=== PATIENT | male | born 1980 | race Hispanic/Latino ===

== ENCOUNTER 2023-01-09 21:26 | Inpatient (IN) | payer SELFPAY ==
[~2023-01-09 21:26] MED LIST: Iopamidol-370 76% 500 ML MDV (1 ML CHARGE) ONE
[2023-01-09] MEDS ORDERED: LORazepam 2 MG/ML SYR.(CARPUJECT) ONE ×2 (21:50→22:27)
[2023-01-09 22:09] LABS: #Basophils 0.1 thou/uL (0.0-0.2); #Monocytes 0.8 thou/uL (0.11-0.59); #Neutrophils 3.3 thou/uL (1.40-6.50); %Basophils 1.5 % (0.0-1.0); %Eosinophils 0.3 % (0.0-10.0); %Lymphocytes 29.8 % (21.0-51.0); %Monocytes 13.5 % (0.0-10.0); %Neutrophils 54.4 % (42.0-75.0); Hematocrit 45.1 % (42.0-52.0); Hemoglobin 15.9 g/dL (14.0-18.0); Mean Corpuscular HGB CONC 35.3 g/dL (32.0-36.0); Mean Corpuscular Hemoglobin 32.6 pg (27.0-31.0); Mean Corpuscular Volume 92.4 fl (78.0-98.0); Mean Platelet Volume 9.8 fL (7.4-10.4); Platelet Count 159 10x3/uL (130-400); Red Blood Cell (RBC) Count 4.88 mill/uL (4.70-6.10); White Blood Cell (WBC) Count 6.1 10x3/uL (4.8-10.8)
[2023-01-09] MEDS ORDERED: Vancomycin 500 MG VIAL (PEDI) ONE (22:11)
[2023-01-09] MEDS ORDERED: Vancomycin 1.5 GRAM/300 ML BAG 1.5 GM in Premix Bag 1 BAG IVPB SCH (22:15)
[2023-01-09 22:26] LABS: ALT (SGPT) 70 U/L (8-55); AST (SGOT) 107 U/L (5-34); Albumin 4.6 g/dL (3.5-5.0); Alkaline Phosphatase 80 U/L (40-110); Anion Gap 21 mmol/L (10-20); BUN (Urea Nitrogen) 8 mg/dL (8.9-20.6); Bilirubin, Total 0.6 mg/dL (0.2-1.2); CK (CPK) 424 U/L (30-200); Calc. Creatinine Clearance 0 mL/min (70-130); Carbon Dioxide 19 mmol/L (22-29); Chloride 106 mmol/L (98-107); Estimated GFR 109; Globulin 3.8 g/dL (2.4-3.5); Glucose 143 mg/dL (70-105); Potassium 3.5 mmol/L (3.5-5.1); Protein, Total 8.4 g/dL (6.0-8.3); Sodium 142 mmol/L (136-145)
[2023-01-09] MEDS ORDERED: Folic Acid 1 MG TAB ONE (22:27)
[2023-01-09 22:29] LABS: Troponin I Less than 0.010 ng/mL (< 0.028)
[2023-01-09] MEDS ORDERED: Thiamine HCl 200 MG/2 ML VIAL SLOW IVP SCH (22:30)
[2023-01-09 22:32] LABS: Acetaminophen Less than 10 mcg/mL (10.0-30.0); Lipase 178 U/L (8-78); Salicylate Less than 8.0 mg/dL (15.0-30.0)
[2023-01-09] MEDS ORDERED: Piperacillin/Tazobactam 4.5 GM VIAL ONE (22:32)
[2023-01-09] MEDS ORDERED: Multivitamin W/ Minerals 1 TAB PO SCH (22:45)
[2023-01-09 22:50] LABS: Alcohol 492.5 mg/dL (Less than 10)
[2023-01-09 23:56] LABS: Amphetamine Not Detected (NotDetected); Barbiturates Screen Not Detected (NotDetected); Benzodiazepine Screen Not Detected (NotDetected); Cocaine Metabolite Screen Detected (NotDetected); Methadone Not Detected (NotDetected); Methamphetamine Not Detected (NotDetected); Opiate Screen Not Detected (NotDetected); Oxycodone Screen Not Detected (NotDetected); Phencyclidine (PCP) Not Detected (NotDetected); THC/Cannabinoid Screen Detected (NotDetected); Tricyclic Screen Not Detected (NotDetected)
[2023-01-10] MEDS ORDERED: LORazepam 2 MG/ML SYR.(CARPUJECT) ONE (00:28)
[2023-01-10] MEDS ORDERED: Ondansetron ODT 4 MG TAB PO PRN (01:17)
[2023-01-10] MEDS ORDERED: Lorazepam 2 MG/ML VIAL IM PRN (01:17)
[2023-01-10 01:18] LABS: Lactic Acid 2.1 mmol/L (0.5-2.2)
[2023-01-10] MEDS ORDERED: Electrolyte Replacement Protocol 1 EACH FS SCH (01:30)
[2023-01-10] MEDS: Lactated Ringer's 1,000 ML IV SCH ×4 (02:00→20:32)
[2023-01-10] MEDS: Lorazepam 1 MG TAB PO PRN ×3 (02:47→15:43)
[2023-01-10] MEDS ORDERED: Morphine 2 MG/ML VIAL SLOW IVP PRN (03:51)
[2023-01-10] MEDS: Lorazepam 1 MG TAB PO SCH ×4 (06:28→23:04)
[2023-01-10 06:34] LABS: Hemoglobin A1c 5.6 % (4.0-6.0)
[2023-01-10 06:48] LABS: ALT (SGPT) 59 U/L (8-55); AST (SGOT) 75 U/L (5-34); Albumin 4.3 g/dL (3.5-5.0); Alkaline Phosphatase 78 U/L (40-110); Anion Gap 15 mmol/L (10-20); BUN (Urea Nitrogen) 6 mg/dL (8.9-20.6); Bilirubin, Direct 0.3 mg/dL (0.1-0.3); Bilirubin, Total 0.5 mg/dL (0.2-1.2); Calc. Creatinine Clearance 127 mL/min (70-130); Calcium 8.6 mg/dL (7.8-10.44); Carbon Dioxide 21 mmol/L (22-29); Chloride 105 mmol/L (98-107); Estimated GFR 114; Globulin 3.5 g/dL (2.4-3.5); Glucose 101 mg/dL (70-105); Potassium 3.4 mmol/L (3.5-5.1); Protein, Total 7.8 g/dL (6.0-8.3); Sodium 138 mmol/L (136-145)
[2023-01-10 06:52] LABS: Troponin I 0.013 ng/mL (< 0.028)
[2023-01-10 07:23] LABS: HBCM Index 0.11 S/CO (0-0.79); HBSAg Index 0.29 S/CO (0-0.99); HIV (1/2) Antibody/Antigen Non-Reactive (NonReactive); HIV 1/2 INDEX 0.21 S/CO (<1.00); Hep A IgM AB Non-Reactive S/CO (NonReactive); Hep A IgM S/CO 0.19 S/CO (0-0.79); Hep B Surf Ag Non-Reactive S/CO (NonReactive); Hep C IgG Ab Non-Reactive S/CO (NonReactive); Hep C Index 0.06 S/CO (0-0.79); Hepatitis B Core IgM Abs Non-Reactive S/CO (NonReactive)
[2023-01-10 08:03] LABS: #Basophils 0.1 thou/uL (0.0-0.2); #Monocytes 0.7 thou/uL (0.11-0.59); #Neutrophils 2.8 thou/uL (1.40-6.50); %Basophils 1.9 % (0.0-1.0); %Eosinophils 0.5 % (0.0-10.0); %Lymphocytes 16.5 % (21.0-51.0); %Neutrophils 64.9 % (42.0-75.0); Hematocrit 43.2 % (42.0-52.0); Hemoglobin 14.2 g/dL (14.0-18.0); Mean Corpuscular HGB CONC 32.9 g/dL (32.0-36.0); Mean Corpuscular Hemoglobin 32.1 pg (27.0-31.0); Mean Platelet Volume 9.4 fL (7.4-10.4); Platelet Count 122 10x3/uL (130-400); RBC Distribution Width 13.2 % (11.5-14.5); Red Blood Cell (RBC) Count 4.43 mill/uL (4.70-6.10); White Blood Cell (WBC) Count 4.3 10x3/uL (4.8-10.8)
[2023-01-10 08:08] LABS: Mean Corpuscular Volume 97.5 fl (78.0-98.0)
[2023-01-10] MEDS: Famotidine/PF 20 mg/2ml Vial SLOW IVP SCH ×2 (08:19→20:32)
[2023-01-10] MEDS: Multivit, Therapeutic 1 TAB PO SCH (08:19)
[2023-01-10] MEDS: Folic Acid 1 MG TAB PO SCH (08:19)
[2023-01-10] MEDS: Potassium Chloride 20 MEQ in Premix Bag 1 BAG IVPB SCH ×2 (08:20→11:06)
[2023-01-10] MEDS ORDERED: Potassium Chloride 20 MEQ TAB PO SCH (11:15)
[2023-01-10 11:44] LABS: Syphilis Antibody Nonreactive (Nonreactive); Syphilis Antibody Index 0.05 S/CO (<1.00 Non-Reactive)
[2023-01-10] MEDS: Dexmedetomidine 400 MCG, Admixture Fee 1 EACH in Sodium Chloride 0.9% 96 ML IVPB SCH (12:49)
[2023-01-10] MEDS: Thiamine HCl 200 MG/2 ML VIAL SLOW IVP SCH (23:04)
[2023-01-11] MEDS ORDERED: Lorazepam 1 MG TAB PO PRN (01:17)
[2023-01-11] MEDS: Lactated Ringer's 1,000 ML IV SCH ×5 (03:11→21:40)
[2023-01-11 04:04] LABS: #Eosinphils 0.1 thou/uL (0.0-0.7); #Monocytes 0.7 thou/uL (0.11-0.59); #Neutrophils 3.6 thou/uL (1.40-6.50); %Basophils 0.6 % (0.0-1.0); %Lymphocytes 11.8 % (21.0-51.0); %Monocytes 13.5 % (0.0-10.0); %Neutrophils 72.9 % (42.0-75.0); Hematocrit 37.6 % (42.0-52.0); Hemoglobin 12.9 g/dL (14.0-18.0); Mean Corpuscular HGB CONC 34.3 g/dL (32.0-36.0); Mean Platelet Volume 9.9 fL (7.4-10.4); Platelet Count 123 10x3/uL (130-400); RBC Distribution Width 12.3 % (11.5-14.5); Red Blood Cell (RBC) Count 4.03 mill/uL (4.70-6.10); White Blood Cell (WBC) Count 4.9 10x3/uL (4.8-10.8)
[2023-01-11 04:06] LABS: Mean Corpuscular Volume 93.3 fl (78.0-98.0)
[2023-01-11] MEDS: Dexmedetomidine 400 MCG, Admixture Fee 1 EACH in Sodium Chloride 0.9% 96 ML IVPB SCH (04:59)
[2023-01-11] MEDS: Lorazepam 1 MG TAB PO SCH ×3 (05:00→18:14)
[2023-01-11 06:37] LABS: ALT (SGPT) 42 U/L (8-55); AST (SGOT) 40 U/L (5-34); Albumin 3.9 g/dL (3.5-5.0); Alkaline Phosphatase 78 U/L (40-110); Anion Gap 11 mmol/L (10-20); BUN (Urea Nitrogen) 8 mg/dL (8.9-20.6); Calc. Creatinine Clearance 120 mL/min (70-130); Calcium 9.6 mg/dL (7.8-10.44); Carbon Dioxide 23 mmol/L (22-29); Chloride 100 mmol/L (98-107); Estimated GFR 112; Globulin 3.1 g/dL (2.4-3.5); Glucose 129 mg/dL (70-105); Potassium 3.8 mmol/L (3.5-5.1); Sodium 130 mmol/L (136-145)
[2023-01-11] MEDS: Multivit, Therapeutic 1 TAB PO SCH (08:11)
[2023-01-11] MEDS: Famotidine/PF 20 mg/2ml Vial SLOW IVP SCH ×2 (08:11→21:02)
[2023-01-11] MEDS: Folic Acid 1 MG TAB PO SCH (08:11)
[2023-01-11 14:40] LABS: Anion Gap 13 mmol/L (10-20); BUN (Urea Nitrogen) 6 mg/dL (8.9-20.6); Calc. Creatinine Clearance 123 mL/min (70-130); Calcium 9.5 mg/dL (7.8-10.44); Carbon Dioxide 25 mmol/L (22-29); Chloride 99 mmol/L (98-107); Estimated GFR 113; Glucose 102 mg/dL (70-105); Potassium 4.2 mmol/L (3.5-5.1); Sodium 133 mmol/L (136-145)
[2023-01-11] MEDS: Thiamine HCl 200 MG/2 ML VIAL SLOW IVP SCH (21:02)
[2023-01-12] MEDS: Lorazepam 0.5 MG TAB PO SCH ×4 (00:49→17:50)
[2023-01-12] MEDS ORDERED: Lorazepam 1 MG TAB PO PRN (01:17)
[2023-01-12] MEDS: Dexmedetomidine 400 MCG, Admixture Fee 1 EACH in Sodium Chloride 0.9% 96 ML IVPB SCH (04:29)
[2023-01-12] MEDS: Lactated Ringer's 1,000 ML IV SCH (04:32)
[2023-01-12 05:07] VITALS: BMI 29.6
[2023-01-12 06:11] LABS: #Eosinphils 0.1 thou/uL (0.0-0.7); #Monocytes 0.5 thou/uL (0.11-0.59); #Neutrophils 3.7 thou/uL (1.40-6.50); %Basophils 0.6 % (0.0-1.0); %Eosinophils 1.8 % (0.0-10.0); %Lymphocytes 13.2 % (21.0-51.0); %Monocytes 10.6 % (0.0-10.0); %Neutrophils 73.6 % (42.0-75.0); Hematocrit 38.7 % (42.0-52.0); Hemoglobin 13.6 g/dL (14.0-18.0); Mean Corpuscular HGB CONC 35.1 g/dL (32.0-36.0); Mean Corpuscular Volume 93.9 fl (78.0-98.0); Mean Platelet Volume 10.9 fL (7.4-10.4); RBC Distribution Width 12.2 % (11.5-14.5); Red Blood Cell (RBC) Count 4.12 mill/uL (4.70-6.10); White Blood Cell (WBC) Count 5.1 10x3/uL (4.8-10.8)
[2023-01-12 06:39] LABS: ALT (SGPT) 55 U/L (8-55); AST (SGOT) 65 U/L (5-34); Alkaline Phosphatase 82 U/L (40-110); Anion Gap 13 mmol/L (10-20); BUN (Urea Nitrogen) 6 mg/dL (8.9-20.6); Bilirubin, Total 1.1 mg/dL (0.2-1.2); Calc. Creatinine Clearance 139 mL/min (70-130); Calcium 9.4 mg/dL (7.8-10.44); Carbon Dioxide 26 mmol/L (22-29); Chloride 99 mmol/L (98-107); Estimated GFR 114; Globulin 3.3 g/dL (2.4-3.5); Glucose 121 mg/dL (70-105); Potassium 3.7 mmol/L (3.5-5.1); Protein, Total 7.3 g/dL (6.0-8.3); Sodium 134 mmol/L (136-145)
[2023-01-12 06:42] LABS: Platelet Count 116 10x3/uL (130-400)
[2023-01-12] MEDS: Famotidine/PF 20 mg/2ml Vial SLOW IVP SCH (08:09)
[2023-01-12] MEDS: Folic Acid 1 MG TAB PO SCH (08:21)
[2023-01-12] MEDS: Multivit, Therapeutic 1 TAB PO SCH (08:21)
[2023-01-12] MEDS: Famotidine 20 MG TAB PO SCH (20:37)
[2023-01-12] MEDS: Thiamine HCl 200 MG/2 ML VIAL SLOW IVP SCH (20:38)
[2023-01-13] MEDS: Lorazepam 0.5 MG TAB PO PRN ×3 (02:53→15:48)
[2023-01-13 07:37] LABS: #Eosinphils 0.1 thou/uL (0.0-0.7); #Monocytes 0.9 thou/uL (0.11-0.59); #Neutrophils 7.5 thou/uL (1.40-6.50); %Basophils 0.4 % (0.0-1.0); %Eosinophils 1.2 % (0.0-10.0); %Lymphocytes 10.3 % (21.0-51.0); %Monocytes 9.1 % (0.0-10.0); %Neutrophils 78.6 % (42.0-75.0); Hematocrit 42.8 % (42.0-52.0); Hemoglobin 14.6 g/dL (14.0-18.0); Mean Corpuscular HGB CONC 34.1 g/dL (32.0-36.0); Mean Corpuscular Volume 96.8 fl (78.0-98.0); Mean Platelet Volume 10.6 fL (7.4-10.4); Platelet Count 146 10x3/uL (130-400); RBC Distribution Width 12.5 % (11.5-14.5); Red Blood Cell (RBC) Count 4.42 mill/uL (4.70-6.10); White Blood Cell (WBC) Count 9.5 10x3/uL (4.8-10.8)
[2023-01-13 08:08] LABS: ALT (SGPT) 53 U/L (8-55); AST (SGOT) 40 U/L (5-34); Albumin 4.3 g/dL (3.5-5.0); Alkaline Phosphatase 81 U/L (40-110); Anion Gap 13 mmol/L (10-20); BUN (Urea Nitrogen) 10 mg/dL (8.9-20.6); Bilirubin, Total 0.8 mg/dL (0.2-1.2); Calc. Creatinine Clearance 119 mL/min (70-130); Calcium 9.4 mg/dL (7.8-10.44); Carbon Dioxide 25 mmol/L (22-29); Chloride 100 mmol/L (98-107); Estimated GFR 109; Globulin 3.3 g/dL (2.4-3.5); Glucose 112 mg/dL (70-105); Potassium 3.8 mmol/L (3.5-5.1); Protein, Total 7.6 g/dL (6.0-8.3); Sodium 134 mmol/L (136-145)
[2023-01-13] MEDS: Multivit, Therapeutic 1 TAB PO SCH (08:31)
[2023-01-13] MEDS: Famotidine 20 MG TAB PO SCH ×2 (08:31→20:35)
[2023-01-13] MEDS: Folic Acid 1 MG TAB PO SCH (08:31)
[2023-01-13] MEDS ORDERED: Thiamine 100 MG TAB PO SCH (21:00)
[2023-01-14] MEDS: Lorazepam 0.5 MG TAB PO PRN ×2 (01:21→08:53)
[2023-01-14] MEDS: Folic Acid 1 MG TAB PO SCH (08:52)
[2023-01-14] MEDS: Famotidine 20 MG TAB PO SCH (08:52)
[2023-01-14] MEDS: Multivit, Therapeutic 1 TAB PO SCH (08:53)
[2023-01-14 13:13] VITALS: BP 156/77; TEMP 98.3
== END 2023-01-14 13:05 | disposition home or self-care (01) | DRG 896 ==
LOC: ERS 21:26 → IMCU/EMU 01-10 00:58 → OBSVTOIN 01-10 02:16 → T4-A 01-12 13:51
PROVIDERS: ADMIT Family Medicine; ATTEND Family Medicine
PROC: HZ2ZZZZ Detoxification Services for Substance Abuse Treatment (ICD-10-PCS; principal; 2023-01-10)
DX: F10.129 Alcohol abuse with intoxication, unspecified (principal); G93.41 Metabolic encephalopathy; E87.20 Acidosis, unspecified; E87.1 Hypo-osmolality and hyponatremia; F19.10 Other psychoactive substance abuse, uncomplicated; R74.01 Elevation of levels of liver transaminase levels; F17.210 Nicotine dependence, cigarettes, uncomplicated; D64.9 Anemia, unspecified; Z98.890 Other specified postprocedural states; Z79.899 Other long term (current) drug therapy; Y90.8 Blood alcohol level of 240 mg/100 ml or more
CPT/HCPCS: 36415; 70450; 74177; 80053; 80074; 80306; 80307; 82140; 82248; 82550; 83036; 83605; 83690; 84443; 84484; 85025; 86780; 87040; 87086; 87389; 93005; 96365; 96366; 96368; 96375; 96376; J2060; J2543; J3370; J3371; J3411; J3480; J3490; J7120; Q9967; S0028